=== PATIENT | male | born 1975 | race Hispanic/Latino ===

== ENCOUNTER 2017-10-21 11:57 | Emergency (ER) | payer MEDICAID ==
[2017-10-21 12:01] VITALS: BMI 27.5
--- NOTE | 2017-10-21 12:13 | ED PDOC ---
Arrival/HPI - General Chief Complaint: Substance Abuse Time Seen by Provider: 10/21/17 12:12 Historian: Patient - History of Present Illness Narrative History of Present Illness (Text): 10/21/17 12:13 Patient is a 42 y/o M with hx of substance abuse, presents to the emergency department status post possible overdose prior to arrival. Patient reports he shot up on heroin this morning and had decided to sleep on the floor with a pillow. Patient family found him on the floor and were concerned patient had overdosed. However according to patient, he did not overdose and feels fine and wants to go home. Patient was transported by EMS and was not given narcan. Patient denies any suicidal/homicidal ideation, or any other complaints whatsoever and desires to leave the ER. Denies any alcohol consumption. No PMD Past Medical History - Provider Review Nursing Documentation Reviewed: Yes - Infectious Disease Hx of Infectious Diseases: None - Cardiac Hx Cardiac Disorders: No Hx Hypertension: No - Pulmonary Hx Tuberculosis: No - Neurological HX Cerebrovascular Accident: No Hx Seizures: No - Hematological/Oncological Hx Blood Disorders: Yes Hx Cancer: No Hx Hepatitis C: Yes - Musculoskeletal/Rheumatological Hx Falls: No - Gastrointestinal Hx Gastrointestinal Disorders: Yes Other/Comment: hep c - Genitourinary/Gynecological Hx Sexually Transmitted Diseases: No - Psychiatric Hx Psychophysiologic Disorder: No Hx Substance Use: Yes (heroin daily.) - Surgical History Hx Cataract Extraction: Yes - Anesthesia Hx Anesthesia: No - Suicidal Assessment Feels Threatened In Home Enviroment: No Family/Social History - Physician Review Nursing Documentation Reviewed: Yes Family/Social History: No Known Family HX Smoking Status: Heavy Smoker > 10 Cigarettes Daily Hx Alcohol Use: No Hx Substance Use: Yes (heroin daily.) Allergies/Home Meds Allergies/Adverse Reactions: Allergies Penicillins Allergy (Verified 10/21/17 12:01) ANAPHYLAXIS Review of Systems - Physician Review All systems were reviewed & negative as marked: Yes - Review of Systems Constitutional: absent: Fevers, Night Sweats ENT: absent: Sore Throat Respiratory: absent: SOB Cardiovascular: absent: Chest Pain, Palpitations, Edema, Calf Pain, Orthopnea, Syncope Gastrointestinal: absent: Abdominal Pain, Diarrhea, Nausea, Vomiting Genitourinary Male: absent: Dysuria Skin: absent: Rash Neurological: absent: Headache, Dizziness, Focal Weakness, Gait Changes, Speech Changes, Facial Droop, Disequilibrium Psychiatric: absent: Anxiety, Depression, Suicidal Ideation (and no homicidal ideation) Physical Exam Vital Signs Temp Pulse Resp BP Pulse Ox 10/21/17 12:24 98.1 F 80 18 113/62 97 10/21/17 12:20 98.3 F 10/21/17 12:18 98.1 F 78 18 113/62 97 Temperature: Afebrile Blood Pressure: Normal Pulse: Regular Respiratory Rate: Normal Appearance: Positive for: Well-Appearing, Non-Toxic, Comfortable Pain Distress: None Mental Status: Positive for: Alert and Oriented X 3 - Systems Exam Head: Present: Atraumatic, Normocephalic Pupils: Present: PERRL Extroacular Muscles: Present: EOMI Conjunctiva: Present: Normal Mouth: Present: Moist Mucous Membranes Neck: Present: Normal Range of Motion Respiratory/Chest: Present: Clear to Auscultation, Good Air Exchange. No: Respiratory Distress, Accessory Muscle Use Cardiovascular: Present: Regular Rate and Rhythm, Normal S1, S2. No: Murmurs Abdomen: No: Tenderness, Distention, Peritoneal Signs Back: Present: Normal Inspection Upper Extremity: Present: Normal Inspection. No: Cyanosis, Edema Lower Extremity: Present: Normal Inspection. No: Edema Neurological: Present: GCS=15, CN II-XII Intact, Speech Normal, Gait Normal ( ambulating around the ED. Taking juice from fridge) Skin: Present: Warm, Dry, Normal Color. No: Rashes Psychiatric: Present: Alert, Oriented x 3, Normal Insight, Normal Concentration Medical Decision Making ED Course and Treatment: 10/21/17 12:17 Impression: 42 year old male brought in for assumed overdose, however patient states he feels normal and has no complaints. No acute findings on physical exam. He has no SI/HI, is AAox3, ambulating around the ED and requesting discharge. Plan: -- Glucose check -- Reassess and disposition Progress Notes: 10/21/17 12:16 Patient currently in normal state of health, ambulating normal here in the ER. Patient has been instructed to not take heroin, is aware of the life threatening affects. and has been offered Narcan prescription, which patient accepts. EKG: Ordered, reviewed, and independently interpreted the EKG. Rate : 86 BPM Rhythm : NSR Interpretation : No ST-segment elevations or depressions, no T-wave inversions, normal intervals. Comparison : No previous EKG for comparison. 10/21/17 12:40 - Lab Interpretations Lab Results: Lab Results 10/21/17 12:14: POC Glucose (mg/dL) 132 H I have reviewed the lab results: Yes - EKG Interpretation Interpreted by ED Physician: Yes Type: 12 lead EKG - Scribe Statement The provider has reviewed the documentation as recorded by the Marva Luna Provider Scribe Attestation: All medical record entries made by the Marva were at my direction and personally dictated by me. I have reviewed the chart and agree that the record accurately reflects my personal performance of the history, physical exam, medical decision making, and the department course for this patient. I have also personally directed, reviewed, and agree with the discharge instructions and disposition. Disposition/Present on Arrival - Present on Arrival Any Indicators Present on Arrival: No History of DVT/PE: No History of Uncontrolled Diabetes: No Urinary Catheter: No History of Decub. Ulcer: No History Surgical Site Infection Following: None - Disposition Have Diagnosis and Disposition been Completed?: Yes Diagnosis: Heroin abuse Disposition: HOME/ ROUTINE Disposition Time: 12:41 Patient Plan: Discharge Condition: GOOD Discharge Instructions (ExitCare): Drug Abuse Treatment, Opioid Use Disorder Additional Instructions: Do not use drugs. Use narcan to reverse heroin. Follow-up with PMD within 2 days. Return to ED if condition worsens. Prescriptions: Naloxone HCl [Narcan] 4 mg NS ONCE #1 spray Forms: [employer] ([place])
[2017-10-21 12:20] VITALS: BP 113/62; RESP 18; O2SAT 97
[2017-10-21 12:26] VITALS: PULSE 80; TEMP 98.1
--- NOTE | 2017-10-21 21:51 | CARD ---
APPROVED REPORT EKG Measurement Heart [id number] <Conclusion> Normal sinus rhythm Normal ECG
== END 2017-10-21 12:25 | disposition home or self-care (01) ==
LOC: ED 11:57
DX: F11.10 Opioid abuse, uncomplicated (principal)